=== PATIENT | male | born 1985 | race Caucasian/White ===

== ENCOUNTER 2022-05-27 22:47 | Emergency (ER) | payer OTHER, SELFPAY ==
--- NOTE | ~2022-05-27 | XR_ITS ---
EXAMINATION: XR RIBS, BILATERAL CLINICAL INFORMATION: Rib pain. Fall. COMPARISON: None TECHNIQUE: PA view the chest and PA and both oblique views of the ribs bilaterally. FINDINGS: Lungs are clear. No consolidation, pneumothorax, or pleural effusion. The cardiomediastinal silhouette and pulmonary vasculature are normal. Osseous structures are unremarkable. Ribs are intact. No fractures are identified. XR/XR ribs BI min 4V w CXR1V IMPRESSION: Normal chest and rib radiographs. No rib fractures are identified.
[2022-05-27 23:31] VITALS: BMI 27.3
--- NOTE | 2022-05-27 23:32 | MHC.CARE ---
CARE Team had a telephonic encounter with [employer] Sgt Ralph and he reported Pt called [facility] twice for SI with a plan. He stated the first time pt denied SI and reported he was fine. The second call from [facility] he transported pt to [facility]. He also reported pt was arrested last month for resisting an arrest and assaulting an officer. He stated pt was kicked out of his home by his because of his behavior. Pt was taking medication for PTSD however stopped taking medication because the did not like pts behavior while on medication. Officer stated he believes pt's behavior is due to alcohol. He provided pt's father contact infroamtion , who reports living in [place] and had nothing to say other than being concerned for pt's PTSD. CARE Team had telephonic encounter with [place] [facility] RN Catherine who states Ana Bell has left for the night but was willing to assist this tech writer with obtaining background information. She reports pt called twice earlier tonight making SI statements with no plan. She reported police arrived at the hotel where pt was located. He was found holding a hatchet and officers removed the hatchet. Pt reported trying to cut three times but was not able to follow through with act. She reports pt has a history of inpatient hospitalization at the [facility]. She reports pt diagnosis is Mixed Bipolar 1 Disorder, Alcohol Dependence, TBI, PTSD, and Severe Depression.
[2022-05-27] MEDS: Gabapentin 600 MG TABLET 1200 MG PO (23:41)
[2022-05-27] MEDS: clonazePAM 1 MG TABLET 2 MG PO (23:41)
[2022-05-27] MEDS: Lithium Carbonate ER 300 MG TABLET.ER PO (23:42)
[2022-05-27] MEDS: Lithium Carbonate ER 300 MG TABLET.ER 600 MG PO (23:42)
--- NOTE | 2022-05-27 23:47 | ED.PSYCH ---
HPI - Psych General Chief Complaint: Psychiatric Symptoms <Damaris Davenport NP - Last Filed: 05/28/22 02:04> Stated Complaint: si section 12 <Damaris Davenport NP - Last Filed: 05/28/22 02:04> Time Seen by Provider: 05/27/22 22:59 <Damaris Davenport NP - Last Filed: 05/28/22 02:04> Source: patient, EMS and police <Damaris Davenport NP - Last Filed: 05/28/22 02:04> Mode of arrival: EMS <Damaris Davenport NP - Last Filed: 05/28/22 02:04> Limitations: altered mental status ( intoxicated) <Damaris Davenport NP - Last Filed: 05/28/22 02:04> History of Present Illness HPI Narrative: 36-year-old male presents via EMS in police custody under section 12 for crisis Assistance. Patient is angry, uncooperative, and not forthcoming with information. <Damaris Davenport NP - Last Filed: 05/28/22 02:04> Onset (ago): month(s) <Damaris Davenport NP - Last Filed: 05/28/22 02:04> Duration: getting worse <Damaris Davenport NP - Last Filed: 05/28/22 02:04> History of same: Yes <Damaris Davenport NP - Last Filed: 05/28/22 02:04> Relieving factors: none <Damaris Davenport NP - Last Filed: 05/28/22 02:04> Exacerbating factors: alcohol <Damaris Davenport NP - Last Filed: 05/28/22 02:04> Context: recent alcohol abuse <Damaris Davenport NP - Last Filed: 05/28/22 02:04> Associated psychiatric symptoms: depression, suicidal ideation and homicidal ideation <Damaris Davenport NP - Last Filed: 05/28/22 02:04> Associated symptoms: denies other symptoms <Damaris Davenport NP - Last Filed: 05/28/22 02:04> Treatments prior to arrival: placed on mental health hold <Damaris Davenport NP - Last Filed: 05/28/22 02:04> If self harm: admits thoughts of self harm <Damaris Davenport NP - Last Filed: 05/28/22 02:04> Related Data Home Medications: Home Medications Medication Instructions Recorded Confirmed clonazepam 0.5 mg tablet (Klonopin) 0.5 mg PO TID 05/28/22 05/28/22 gabapentin 300 mg capsule 1,200 mg PO BEDTIME 05/28/22 05/28/22 gabapentin 300 mg capsule 300 mg PO BID@0700,1200 05/28/22 05/28/22 hydroxyzine HCl 25 mg tablet 75 mg PO BEDTIME PRN Anxiety 05/28/22 05/28/22 lithium carbonate 300 mg capsule 900 mg PO BEDTIME 05/28/22 05/28/22 melatonin 3 mg tablet 9 mg PO BEDTIME 05/28/22 05/28/22 <Damaris Davenport NP - Last Filed: 05/28/22 02:04> Allergies/Adverse Reactions: Allergies Allergy/AdvReac Type Severity Reaction Status Date / Time No Known Allergies Allergy Verified 05/27/22 23:32 <Damaris Davenport NP - Last Filed: 05/28/22 02:04> Review of Systems Review of Systems: Yes Unobtainable due to mental status ( Patient belligerent and not answering questions) <Damaris Davenport NP - Last Filed: 05/28/22 02:04> [facility] Past Medical History Attestation statement: The following information was validated with the patient. <Damaris Davenport NP - Last Filed: 05/28/22 02:04> Source: unable to obtain ( no prior visits to this facility) <Damaris Davenport NP - Last Filed: 05/28/22 02:04> Social History Social History: Social History Alcohol intake: former Smoked in Last 30 Days: Yes Use of substances other than those prescribed or required for medical reasons: Yes Substance Use Type: Marijuana Advance Directives: No <Damaris Davenport NP - Last Filed: 05/28/22 02:04> Physical Exam Vital Signs: Vital Signs: Last Vital Signs Temp 97.8 F 05/28/22 11:45 Pulse 70 05/28/22 11:45 Resp 14 05/28/22 11:45 BP 125/84 05/28/22 11:45 Pulse Ox 96 05/28/22 11:45 O2 Del Method 05/28/22 11:45 BMI result Body Mass Index 27.3 <Damaris Davenport NP - Last Filed: 05/28/22 02:04> Vital Signs: Last Vital Signs Temp 97.8 F 05/28/22 11:45 Pulse 70 05/28/22 11:45 Resp 14 05/28/22 11:45 BP 125/84 05/28/22 11:45 Pulse Ox 96 05/28/22 11:45 O2 Del Method 05/28/22 11:45 BMI result Body Mass Index 27.3 <Rigoberto Thompson MD - Last Filed: 05/28/22 14:13> Vital Signs: Last Vital Signs Temp 97.8 F 05/28/22 11:45 Pulse 70 05/28/22 11:45 Resp 14 05/28/22 11:45 BP 125/84 05/28/22 11:45 Pulse Ox 96 05/28/22 11:45 O2 Del Method 05/28/22 11:45 BMI result Body Mass Index 27.3 <Jason Hill MD - Last Filed: 05/28/22 18:59> Appearance: Alert. severe emotional distress. Eyes: Pupils equal, round and reactive to light. Neck: Normal inspection. Neck supple. CVS: Normal heart rate and rhythm. Pulses normal. Respiratory: No respiratory distress. Breath sounds normal. Skin: Skin warm and dry. Normal skin color. Normal skin turgor. Extremities: No lower extremity edema. Gait balance and coordinated. Neuro: No motor deficit. No sensory deficit. Cranial nerves 2-12 intact. <Damaris Davenport NP - Last Filed: 05/28/22 02:04> Course Course Course Narrative: 36-year-old male presents via EMS under police custody section 12 for crisis. Patient is in [place] , once police arrived at his home, they had to disarm a knife from the patient's presence. Patient had called crisis line twice, had been drinking alcohol and had not been taking his medications for over a month. Upon arrival, patient is angry, threatening to kill everyone. patient is not redirectable. Security Officers called [place] police department to help assist with telephone exchange operator and medication administration. After approximately 60 minutes of deescalation, patient was given 2 mg of Klonopin, 1200 mg of gabapentin, and 900 mg of lithium, per his home dosage. Patient stated to have chest pain on the left side after a fall that occurred yesterday. Will order chest x-ray. 23:58 patient x-ray with this MARINE PAINTER and security. Chest x-ray is negative for acute findings. Plan of care is for evaluation in the morning. Patient continues to refuse labs. <Damaris Davenport NP - Last Filed: 05/28/22 02:04> Reevaluation(s) Reevaluation #1: physician observation had a rough night needed to be medicated, now sleeping, still has not allowed labs to be drawn. awaiting evaluation <Rigoberto Thompson MD - Last Filed: 05/28/22 14:13> Time: 08:42 <Rigoberto Thompson MD - Last Filed: 05/28/22 14:13> Reevaluation #2: Patient is medically cleared for crisis <Rigoberto Thompson MD - Last Filed: 05/28/22 14:13> Time: 14:13 <Rigoberto Thompson MD - Last Filed: 05/28/22 14:13> Reevaluation #3: [facility]. He is having difficulty sleeping. Will order her a mg of Ativan and melatonin for the patient. <Jason Hill MD - Last Filed: 05/28/22 18:59> Medications Administered Generic Name Dose Route Start Last Admin Trade Name Freq PRN Reason Stop Dose Admin Clonazepam 0.5 mg 05/28/22 15:00 05/28/22 13:19 Clonazepam 0.5 Mg Tablet PO 0.5 mg TID MICH Administration Gabapentin 900 mg 05/28/22 17:45 05/28/22 17:50 Gabapentin 300 Mg Capsule PO 900 mg BID@0700,1200 MICH Administration Nicotine Polacrilex 2 mg 05/28/22 00:57 05/28/22 18:19 Nicotine Polacrilex 2 Mg Gum BUCCAL 2 mg Q2H PRN Administration smoking cessation Discontinued Medications Generic Name Dose Route Start Last Admin Trade Name Freq PRN Reason Stop Dose Admin Clonazepam 2 mg 05/27/22 23:36 05/27/22 23:41 Clonazepam 1 Mg Tablet PO 05/27/22 23:37 2 mg ONCE ONE Administration Gabapentin 1,200 mg 05/27/22 23:33 05/27/22 23:41 Gabapentin 600 Mg Tablet PO 05/27/22 23:34 1,200 mg ONCE ONE Administration [place] Carbon[place] 600 mg 05/27/22 23:37 05/27/22 23:42 [place] Carbon[place] Er 300 Mg Tablet.Er PO 05/27/22 23:38 600 mg ONCE ONE Administration [place] 300 mg 05/27/22 23:40 05/27/22 23:42 [place] Carbon[place] Er 300 Mg Tablet.Er PO 05/27/22 23:41 300 mg ONCE ONE Administration <Damaris Davenport NP - Last Filed: 05/28/22 02:04> Medications Administered Generic Name Dose Route Start Last Admin Trade Name Freq PRN Reason Stop Dose Admin Clonazepam 0.5 mg 05/28/22 15:00 05/28/22 13:19 Clonazepam 0.5 Mg Tablet PO 0.5 mg TID MICH Administration Gabapentin 900 mg 05/28/22 17:45 05/28/22 17:50 Gabapentin 300 Mg Capsule PO 900 mg BID@0700,1200 MICH Administration Nicotine Polacrilex 2 mg 05/28/22 00:57 05/28/22 18:19 Nicotine Polacrilex 2 Mg Gum BU[place]AL 2 mg Q2H PRN Administration smoking cessation Discontinued Medications Generic Name Dose Route Start Last Admin Trade Name Freq PRN Reason Stop Dose Admin Clonazepam 2 mg 05/27/22 23:36 05/27/22 23:41 Clonazepam 1 Mg Tablet PO 05/27/22 23:37 2 mg ONCE ONE Administration Gabapentin 1,200 mg 05/27/22 23:33 05/27/22 23:41 Gabapentin 600 Mg Tablet PO 05/27/22 23:34 1,200 mg ONCE ONE Administration [place] Carbon[place] 600 mg 05/27/22 23:37 05/27/22 23:42 [place] Carbon[place] Er 300 Mg Tablet.Er PO 05/27/22 23:38 600 mg ONCE ONE Administration [place] 300 mg 05/27/22 23:40 05/27/22 23:42 [place] Carbon[place] Er 300 Mg Tablet.Er PO 05/27/22 23:41 300 mg ONCE ONE Administration <Rigoberto Thompson MD - Last Filed: 05/28/22 14:13> Medications Administered Generic Name Dose Route Start Last Admin Trade Name Freq PRN Reason Stop Dose Admin Clonazepam 0.5 mg 05/28/22 15:00 05/28/22 13:19 Clonazepam 0.5 Mg Tablet PO 0.5 mg TID MICH Administration Gabapentin 900 mg 05/28/22 17:45 05/28/22 17:50 Gabapentin 300 Mg Capsule PO 900 mg BID@0700,1200 MICH Administration Nicotine Polacrilex 2 mg 05/28/22 00:57 05/28/22 18:19 Nicotine Polacrilex 2 Mg Gum [place] 2 mg Q2H PRN Administration smoking cessation Discontinued Medications Generic Name Dose Route Start Last Admin Trade Name Freq PRN Reason Stop Dose Admin Clonazepam 2 mg 05/27/22 23:36 05/27/22 23:41 Clonazepam 1 Mg Tablet PO 05/27/22 23:37 2 mg ONCE ONE Administration Gabapentin 1,200 mg 05/27/22 23:33 05/27/22 23:41 Gabapentin 600 Mg Tablet PO 05/27/22 23:34 1,200 mg ONCE ONE Administration [place] 600 mg 05/27/22 23:37 05/27/22 23:42 [place] Er 300 Mg Tablet.Er PO 05/27/22 23:38 600 mg ONCE ONE Administration [place] 300 mg 05/27/22 23:40 05/27/22 23:42 [place] Er 300 Mg Tablet.Er PO 05/27/22 23:41 300 mg ONCE ONE Administration <Jason Hill MD - Last Filed: 05/28/22 18:59> Medical Decision Making Differential Diagnosis Differential Diagnoses: The differential diagnosis associated with the presentation includes <Damaris Davenport NP - Last Filed: 05/28/22 02:04> PTSD, psychosis <Damaris Davenport NP - Last Filed: 05/28/22 02:04> Admission/Observation Consideration of admission/observation: Escalation of care including admission/observation considered <Damaris Davenport NP - Last Filed: 05/28/22 02:04> strongly consider psychiatric admission <Damaris Davenport NP - Last Filed: 05/28/22 02:04> Consult Healthcare Provider Management of the patient was discussed with: Behavioral Health Provider <Damaris Davenport NP - Last Filed: 05/28/22 02:04> Lab Data [facility] Lab Attestation statement: I reviewed the patient's lab results. <Damaris Davenport NP - Last Filed: 05/28/22 02:04> Result Diagrams: 05/28/22 09:59 05/28/22 09:59 <Damaris Davenport NP - Last Filed: 05/28/22 02:04> Labs: Lab Results 05/28/22 05/28/22 05/28/22 Range/Units 00:55 00:55 09:59 WBC 5.8 (4.8-10.8) X10*3/uL RBC 5.43 (4.60-5.80) X10*6/uL Hgb 16.3 (14.0-18.0) g/dl Hct 48.1 (42.0-52.0) % MCV 88.6 (80.0-98.0) fL MCH 30.0 (27.0-33.0) pg MCHC 33.9 (31.0-36.0) g/dl RDW 13.5 (11.0-16.0) % Plt Count 265 (160-400) X10*3/uL MPV 9.3 L (9.4-12.4) fL Immature Gran % (Auto) 0.2 (0.0-0.4) % Neut % (Auto) 67.4 (45-73) % Lymph % (Auto) 23.7 (20-40) % [place] % (Auto) 5.3 (2-11) % Eos % (Auto) 2.9 (0-4) % Baso % (Auto) 0.5 (0-2) % Lymph # (Auto) 1.4 (1.2-4.9) X10*3/uL [place] # (Auto) 0.3 (0.1-1.2) X10*3/uL Eos # (Auto) 0.2 (0.0-0.4) X10*3/uL Baso # (Auto) 0.0 (0.0-0.2) X10*3/uL Abs Immat Gran (auto) 0.01 (0.00-0.03) X10*3/uL Absolute Neuts (auto) 3.9 (2.0-8.3) x10*3/uL Absolute Nucleated RBC 0.000 (0.0-0.012) X10*3/uL Nucleated RBC % (auto) 0.0 (0.0-0.2) /100WBC Sodium (135-145) mmol/L Potassium (3.3-5.1) mmol/L Chloride (96-108) mmol/L Carbon Dioxide (22-29) mmol/L Anion Gap (12-20) BUN (9-16) mg/dL Creatinine (0.5-1.4) mg/dL Estim Creat Clear Calc Estimated GFR Random Glucose (60-115) mg/dL Calcium (8.4-10.2) mg/dL Urine Color Yellow Urine Appearance Clear Urine pH 5.5 (5.0-9.0) Ur Specific [place] 1.015 (1.005-1.025) Urine Protein Negative (Neg-Trace) mg/dL Urine Glucose (UA) Negative (Negative) mg/dL Urine Ketones Trace (Negative) mg/dL Urine Blood Negative (Negative) Urine Nitrite Negative (Negative) Ur Leukocyte Esterase Negative (Negative) Urine Opiates Screen Not Detected (Not Detect) Urine Fentanyl Screen Not Detected (Not Detect) Ur Barbiturates Screen Not Detected (Not Detect) Ur Phencyclidine Scrn Not Detected (Not Detect) Ur Amphetamines Screen Not Detected (Not Detect) U Benzodiazepines Scrn POSITIVE H (Not Detect) Urine Cocaine Screen Not Detected (Not Detect) U Marijuana (THC) Screen POSITIVE H (Not Detect) Ethyl Alcohol mg/dL Influenza Type A (PCR) (Negative) Influenza Type B (PCR) (Negative) RSV RNA Qual (PCR) (Negative) SARS-CoV-2 RNA (RT-PCR) (Negative) 05/28/22 05/28/22 Range/Units 09:59 09:59 WBC (4.8-10.8) X10*3/uL RBC (4.60-5.80) X10*6/uL Hgb (14.0-18.0) g/dl Hct (42.0-52.0) % MCV (80.0-98.0) fL MCH (27.0-33.0) pg MCHC (31.0-36.0) g/dl RDW (11.0-16.0) % Plt Count (160-400) X10*3/uL MPV (9.4-12.4) fL Immature Gran % (Auto) (0.0-0.4) % Neut % (Auto) (45-73) % Lymph % (Auto) (20-40) % [place] % (Auto) (2-11) % Eos % (Auto) (0-4) % Baso % (Auto) (0-2) % Lymph # (Auto) (1.2-4.9) X10*3/uL [place] # (Auto) (0.1-1.2) X10*3/uL Eos # (Auto) (0.0-0.4) X10*3/uL Baso # (Auto) (0.0-0.2) X10*3/uL Abs Immat Gran (auto) (0.00-0.03) X10*3/uL Absolute Neuts (auto) (2.0-8.3) x10*3/uL Absolute Nucleated RBC (0.0-0.012) X10*3/uL Nucleated RBC % (auto) (0.0-0.2) /100WBC Sodium 144 (135-145) mmol/L Potassium 4.2 (3.3-5.1) mmol/L Chloride 112 H (96-108) mmol/L Carbon Dioxide 24 (22-29) mmol/L Anion Gap 12 (12-20) BUN 16 (9-16) mg/dL Creatinine 0.79 (0.5-1.4) mg/dL Estim Creat Clear Calc 161.7 Estimated GFR > 60 Random Glucose 88 (60-115) mg/dL Calcium 9.3 (8.4-10.2) mg/dL Urine Color Urine Appearance Urine pH (5.0-9.0) Ur Specific [place] (1.005-1.025) Urine Protein (Neg-Trace) mg/dL Urine Glucose (UA) (Negative) mg/dL Urine Ketones (Negative) mg/dL Urine Blood (Negative) Urine Nitrite (Negative) Ur Leukocyte Esterase (Negative) Urine Opiates Screen (Not Detect) Urine Fentanyl Screen (Not Detect) Ur Barbiturates Screen (Not Detect) Ur Phencyclidine Scrn (Not Detect) Ur Amphetamines Screen (Not Detect) U Benzodiazepines Scrn (Not Detect) Urine Cocaine Screen (Not Detect) U Marijuana (THC) Screen (Not Detect) Ethyl Alcohol 12 mg/dL Influenza Type A (PCR) NEGATIVE (Negative) Influenza Type B (PCR) NEGATIVE (Negative) RSV RNA Qual (PCR) NEGATIVE (Negative) SARS-CoV-2 RNA (RT-PCR) NEGATIVE (Negative) <Damaris Davenport NP - Last Filed: 05/28/22 02:04> Lab Results 05/28/22 05/28/22 05/28/22 Range/Units 00:55 00:55 09:59 WBC 5.8 (4.8-10.8) X10*3/uL RBC 5.43 (4.60-5.80) X10*6/uL Hgb 16.3 (14.0-18.0) g/dl Hct 48.1 (42.0-52.0) % MCV 88.6 (80.0-98.0) fL MCH 30.0 (27.0-33.0) pg MCHC 33.9 (31.0-36.0) g/dl RDW 13.5 (11.0-16.0) % Plt Count 265 (160-400) X10*3/uL MPV 9.3 L (9.4-12.4) fL Immature Gran % (Auto) 0.2 (0.0-0.4) % Neut % (Auto) 67.4 (45-73) % Lymph % (Auto) 23.7 (20-40) % [place] % (Auto) 5.3 (2-11) % Eos % (Auto) 2.9 (0-4) % Baso % (Auto) 0.5 (0-2) % Lymph # (Auto) 1.4 (1.2-4.9) X10*3/uL [place] # (Auto) 0.3 (0.1-1.2) X10*3/uL Eos # (Auto) 0.2 (0.0-0.4) X10*3/uL Baso # (Auto) 0.0 (0.0-0.2) X10*3/uL Abs Immat Gran (auto) 0.01 (0.00-0.03) X10*3/uL Absolute Neuts (auto) 3.9 (2.0-8.3) x10*3/uL Absolute Nucleated RBC 0.000 (0.0-0.012) X10*3/uL Nucleated RBC % (auto) 0.0 (0.0-0.2) /100WBC Sodium (135-145) mmol/L Potassium (3.3-5.1) mmol/L Chloride (96-108) mmol/L Carbon Dioxide (22-29) mmol/L Anion Gap (12-20) BUN (9-16) mg/dL Creatinine (0.5-1.4) mg/dL Estim Creat Clear Calc Estimated GFR Random Glucose (60-115) mg/dL Calcium (8.4-10.2) mg/dL Urine Color Yellow Urine Appearance Clear Urine pH 5.5 (5.0-9.0) Ur Specific [place] 1.015 (1.005-1.025) Urine Protein Negative (Neg-Trace) mg/dL Urine Glucose (UA) Negative (Negative) mg/dL Urine Ketones Trace (Negative) mg/dL Urine Blood Negative (Negative) Urine Nitrite Negative (Negative) Ur Leukocyte Esterase Negative (Negative) Urine Opiates Screen Not Detected (Not Detect) Urine Fentanyl Screen Not Detected (Not Detect) Ur Barbiturates Screen Not Detected (Not Detect) Ur Phencyclidine Scrn Not Detected (Not Detect) Ur Amphetamines Screen Not Detected (Not Detect) U Benzodiazepines Scrn POSITIVE H (Not Detect) Urine Cocaine Screen Not Detected (Not Detect) U Marijuana (THC) Screen POSITIVE H (Not Detect) Ethyl Alcohol mg/dL Influenza Type A (PCR) (Negative) Influenza Type B (PCR) (Negative) RSV RNA Qual (PCR) (Negative) SARS-CoV-2 RNA (RT-PCR) (Negative) 05/28/22 05/28/22 Range/Units 09:59 09:59 WBC (4.8-10.8) X10*3/uL RBC (4.60-5.80) X10*6/uL Hgb (14.0-18.0) g/dl Hct (42.0-52.0) % MCV (80.0-98.0) fL MCH (27.0-33.0) pg MCHC (31.0-36.0) g/dl RDW (11.0-16.0) % Plt Count (160-400) X10*3/uL MPV (9.4-12.4) fL Immature Gran % (Auto) (0.0-0.4) % Neut % (Auto) (45-73) % Lymph % (Auto) (20-40) % [place] % (Auto) (2-11) % Eos % (Auto) (0-4) % Baso % (Auto) (0-2) % Lymph # (Auto) (1.2-4.9) X10*3/uL [place] # (Auto) (0.1-1.2) X10*3/uL Eos # (Auto) (0.0-0.4) X10*3/uL Baso # (Auto) (0.0-0.2) X10*3/uL Abs Immat Gran (auto) (0.00-0.03) X10*3/uL Absolute Neuts (auto) (2.0-8.3) x10*3/uL Absolute Nucleated RBC (0.0-0.012) X10*3/uL Nucleated RBC % (auto) (0.0-0.2) /100WBC Sodium 144 (135-145) mmol/L Potassium 4.2 (3.3-5.1) mmol/L Chloride 112 H (96-108) mmol/L Carbon Dioxide 24 (22-29) mmol/L Anion Gap 12 (12-20) BUN 16 (9-16) mg/dL Creatinine 0.79 (0.5-1.4) mg/dL Estim Creat Clear Calc 161.7 Estimated GFR > 60 Random Glucose 88 (60-115) mg/dL Calcium 9.3 (8.4-10.2) mg/dL Urine Color Urine Appearance Urine pH (5.0-9.0) Ur Specific [place] (1.005-1.025) Urine Protein (Neg-Trace) mg/dL Urine Glucose (UA) (Negative) mg/dL Urine Ketones (Negative) mg/dL Urine Blood (Negative) Urine Nitrite (Negative) Ur Leukocyte Esterase (Negative) Urine Opiates Screen (Not Detect) Urine Fentanyl Screen (Not Detect) Ur Barbiturates Screen (Not Detect) Ur Phencyclidine Scrn (Not Detect) Ur Amphetamines Screen (Not Detect) U Benzodiazepines Scrn (Not Detect) Urine Cocaine Screen (Not Detect) U Marijuana (THC) Screen (Not Detect) Ethyl Alcohol 12 mg/dL Influenza Type A (PCR) NEGATIVE (Negative) Influenza Type B (PCR) NEGATIVE (Negative) RSV RNA Qual (PCR) NEGATIVE (Negative) SARS-CoV-2 RNA (RT-PCR) NEGATIVE (Negative) <Rigoberto Thompson MD - Last Filed: 05/28/22 14:13> Lab Results 05/28/22 05/28/22 05/28/22 Range/Units 00:55 00:55 09:59 WBC 5.8 (4.8-10.8) X10*3/uL RBC 5.43 (4.60-5.80) X10*6/uL Hgb 16.3 (14.0-18.0) g/dl Hct 48.1 (42.0-52.0) % MCV 88.6 (80.0-98.0) fL MCH 30.0 (27.0-33.0) pg MCHC 33.9 (31.0-36.0) g/dl RDW 13.5 (11.0-16.0) % Plt Count 265 (160-400) X10*3/uL MPV 9.3 L (9.4-12.4) fL Immature Gran % (Auto) 0.2 (0.0-0.4) % Neut % (Auto) 67.4 (45-73) % Lymph % (Auto) 23.7 (20-40) % [place] % (Auto) 5.3 (2-11) % Eos % (Auto) 2.9 (0-4) % Baso % (Auto) 0.5 (0-2) % Lymph # (Auto) 1.4 (1.2-4.9) X10*3/uL [place] # (Auto) 0.3 (0.1-1.2) X10*3/uL Eos # (Auto) 0.2 (0.0-0.4) X10*3/uL Baso # (Auto) 0.0 (0.0-0.2) X10*3/uL Abs Immat Gran (auto) 0.01 (0.00-0.03) X10*3/uL Absolute Neuts (auto) 3.9 (2.0-8.3) x10*3/uL Absolute Nucleated RBC 0.000 (0.0-0.012) X10*3/uL Nucleated RBC % (auto) 0.0 (0.0-0.2) /100WBC Sodium (135-145) mmol/L Potassium (3.3-5.1) mmol/L Chloride (96-108) mmol/L Carbon Dioxide (22-29) mmol/L Anion Gap (12-20) BUN (9-16) mg/dL Creatinine (0.5-1.4) mg/dL Estim Creat Clear Calc Estimated GFR Random Glucose (60-115) mg/dL Calcium (8.4-10.2) mg/dL Urine Color Yellow Urine Appearance Clear Urine pH 5.5 (5.0-9.0) Ur Specific [place] 1.015 (1.005-1.025) Urine Protein Negative (Neg-Trace) mg/dL Urine Glucose (UA) Negative (Negative) mg/dL Urine Ketones Trace (Negative) mg/dL Urine Blood Negative (Negative) Urine Nitrite Negative (Negative) Ur Leukocyte Esterase Negative (Negative) Urine Opiates Screen Not Detected (Not Detect) Urine Fentanyl Screen Not Detected (Not Detect) Ur Barbiturates Screen Not Detected (Not Detect) Ur Phencyclidine Scrn Not Detected (Not Detect) Ur Amphetamines Screen Not Detected (Not Detect) U Benzodiazepines Scrn POSITIVE H (Not Detect) Urine Cocaine Screen Not Detected (Not Detect) U Marijuana (THC) Screen POSITIVE H (Not Detect) Ethyl Alcohol mg/dL Influenza Type A (PCR) (Negative) Influenza Type B (PCR) (Negative) RSV RNA Qual (PCR) (Negative) SARS-CoV-2 RNA (RT-PCR) (Negative) 05/28/22 05/28/22 Range/Units 09:59 09:59 WBC (4.8-10.8) X10*3/uL RBC (4.60-5.80) X10*6/uL Hgb (14.0-18.0) g/dl Hct (42.0-52.0) % MCV (80.0-98.0) fL MCH (27.0-33.0) pg MCHC (31.0-36.0) g/dl RDW (11.0-16.0) % Plt Count (160-400) X10*3/uL MPV (9.4-12.4) fL Immature Gran % (Auto) (0.0-0.4) % Neut % (Auto) (45-73) % Lymph % (Auto) (20-40) % [place] % (Auto) (2-11) % Eos % (Auto) (0-4) % Baso % (Auto) (0-2) % Lymph # (Auto) (1.2-4.9) X10*3/uL [place] # (Auto) (0.1-1.2) X10*3/uL Eos # (Auto) (0.0-0.4) X10*3/uL Baso # (Auto) (0.0-0.2) X10*3/uL Abs Immat Gran (auto) (0.00-0.03) X10*3/uL Absolute Neuts (auto) (2.0-8.3) x10*3/uL Absolute Nucleated RBC (0.0-0.012) X10*3/uL Nucleated RBC % (auto) (0.0-0.2) /100WBC Sodium 144 (135-145) mmol/L Potassium 4.2 (3.3-5.1) mmol/L Chloride 112 H (96-108) mmol/L Carbon Dioxide 24 (22-29) mmol/L Anion Gap 12 (12-20) BUN 16 (9-16) mg/dL Creatinine 0.79 (0.5-1.4) mg/dL Estim Creat Clear Calc 161.7 Estimated GFR > 60 Random Glucose 88 (60-115) mg/dL Calcium 9.3 (8.4-10.2) mg/dL Urine Color Urine Appearance Urine pH (5.0-9.0) Ur Specific [place] (1.005-1.025) Urine Protein (Neg-Trace) mg/dL Urine Glucose (UA) (Negative) mg/dL Urine Ketones (Negative) mg/dL Urine Blood (Negative) Urine Nitrite (Negative) Ur Leukocyte Esterase (Negative) Urine Opiates Screen (Not Detect) Urine Fentanyl Screen (Not Detect) Ur Barbiturates Screen (Not Detect) Ur Phencyclidine Scrn (Not Detect) Ur Amphetamines Screen (Not Detect) U Benzodiazepines Scrn (Not Detect) Urine Cocaine Screen (Not Detect) U Marijuana (THC) Screen (Not Detect) Ethyl Alcohol 12 mg/dL Influenza Type A (PCR) NEGATIVE (Negative) Influenza Type B (PCR) NEGATIVE (Negative) RSV RNA Qual (PCR) NEGATIVE (Negative) SARS-CoV-2 RNA (RT-PCR) NEGATIVE (Negative) <Jason Hill MD - Last Filed: 05/28/22 18:59> Independent Interpretation I performed an independent interpretation of an: Plain X-Ray <Damaris Davenport NP - Last Filed: 05/28/22 02:04> Radiology Impression Discussion of test interpretation with radiology: I have reviewed the radiologist's reading. <Damaris Davenport NP - Last Filed: 05/28/22 02:04> Radiologist Impression: EXAMINATION: XR RIBS, BILATERAL CLINICAL INFORMATION: Rib pain. Fall. COMPARISON: None TECHNIQUE: PA view the chest and PA and both oblique views of the ribs bilaterally. FINDINGS: Lungs are clear. No consolidation, pneumothorax, or pleural effusion. The cardiomediastinal silhouette and pulmonary vasculature are normal. Osseous structures are unremarkable. Ribs are intact. No fractures are identified. XR/XR ribs BI min 4V w CXR1V IMPRESSION: Normal chest and rib radiographs. No rib fractures are identified. <KEVIN Cyr Last Filed: 05/28/22 02:04> Social Determinants Patient?s care significantly limited by Social Determinants of Health including: Other Social Determinant of Health <Damaris Davenport NP - Last Filed: 05/28/22 02:04> Critical Care Time Critical Care Time Critical Care Time: Yes <Damaris Davenport NP - Last Filed: 05/28/22 02:04> Total Critical Care Time: 45 <Damaris Davenport NP - Last Filed: 05/28/22 02:04> Attestation: I have personally provided critical care time exclusive of time spent on separately billable procedures. Time includes review of laboratory data, radiology results, discussion with consultants, and monitoring for potential decompensation. Interventions were performed as documented. <KEVIN Cyr Last Filed: 05/28/22 02:04> Discharge Plan Discharge Clinical Impression: Acute psychosis, Acute post-traumatic stress disorder <KEVIN Cyr Last Filed: 05/28/22 02:04> Patient Disposition: Still a Patient <Damaris Davenport NP - Last Filed: 05/28/22 02:04> Prescriptions: No Action clonazepam [Klonopin] 0.5 mg Tablet 0.5 mg PO TID melatonin 3 mg Tablet 9 mg PO BEDTIME gabapentin 300 mg Capsule 300 mg PO BID@0700,1200 gabapentin 300 mg Capsule 1,200 mg PO BEDTIME hydroxyzine HCl 25 mg Tablet 75 mg PO BEDTIME PRN (Reason: Anxiety) lithium carbonate 300 mg Capsule 900 mg PO BEDTIME <Damaris Davenport NP - Last Filed: 05/28/22 02:04> Interventions: [place]-Suicide Risk Severity Scale Last Done: 05/28/22 07:32 <Damaris Davenport NP - Last Filed: 05/28/22 02:04>
[2022-05-28 01:02] LABS: Appearance Urine Clear; Color Urine Yellow; Glucose Urine UA Negative (Negative); Leukocyte Esterase Urine Negative (Negative); Nitrite Urine Negative (Negative); PH 5.5 (5.0-9.0); Specific Gravity - Urine 1.015 (1.005-1.025); Urine Blood Negative (Negative); Urine Ketones Trace mg/dL (Negative); Urine Protein Negative (Neg-Trace)
[2022-05-28] MEDS: Nicotine Polacrilex 2 MG GUM BUCCAL ×4 (01:07→18:19)
[2022-05-28 01:20] LABS: Amphetamine Screen Urine Not Detected (Not Detect); Barbiturates, Urine Not Detected (Not Detect); Benzodiazepines Screen Urine POSITIVE (Not Detect); Cannabinoid Screen Urine POSITIVE (Not Detect); Cocaine Screen Urine Not Detected (Not Detect); Fentanyl, urine Not Detected (Not Detect); Opiate Screen Urine Not Detected (Not Detect); Phencyclidine Screen Urine Not Detected (Not Detect)
--- NOTE | 2022-05-28 02:20 | PC.NURSE ---
Pt. arrived via EMS and was uncooperative with changeover. Security was present. Galo PELAEZ was called to assist. Pt. eventually calmed enough to move to room and changeover was completed. Pt. placed on 15 minute safety checks. Pt. medicated per MAR with reported home medications. Pt. rested quietly in bed for a time. Pt. asked to speak to a doctor or psychologist or psychiatrist. This RN spoke with pt. about issues in his life dealing with his home and . Pt. encouraged to focus on himself and take his medications so he could feel more in control and then to deal with larger issues. Pt. again rested quietly for a short time. Pt. asking about leaving and questioned whether we could hold him here. This RN explained to pt. that he was brought here on a section 12 and we were unable to let him leave. Informed pt. of next steps of meeting with care team and psychiatry, both of which consults were ordered. Pt. reported feeling restless. Pt. was offered medications to help with the anxiety and restlessness. Pt. eventually asked for nicotine gum, which was then provided to pt. Pt. is now sleeping, respirations even and unlabored, no distress noted. Will continue to monitor.
[2022-05-28 05:09] VITALS: RESP 18
--- NOTE | 2022-05-28 06:17 | PC.NURSE ---
Pt. slept since around 0200 and is still sleeping. No distress noted. Will continue to monitor.
--- NOTE | 2022-05-28 09:24 | ECG_ITS ---
Test Reason : clearance Blood Pressure : / mmHG Vent. Rate : 071 BPM Atrial Rate : 071 BPM P-R Int : 196 ms QRS Dur : 086 ms QT Int : 356 ms P-R-T Axes : 081 -56 055 degrees QTc Int : 386 ms Normal sinus rhythm Left axis deviation Abnormal ECG No previous ECGs available Referred By: Rigoberto Thompson Electronically Signed By:JOSUE FIGUEROA MD
[2022-05-28 10:04] LABS: MANUAL DIFF FLAG NO
[2022-05-28 10:06] LABS: Basophils Percent Auto 0.5 % (0-2); Eosinophils Absolute Auto 0.2 X10*3/uL (0.0-0.4); Eosinophils Percent Auto 2.9 % (0-4); Hematocrit 48.1 % (42.0-52.0); Hemoglobin 16.3 g/dl (14.0-18.0); Imm Gran Abs Auto 0.01 X10*3/uL (0.00-0.03); Imm Gran Pct Auto 0.2 % (0.0-0.4); Lymphocytes Absolute Auto 1.4 X10*3/uL (1.2-4.9); Lymphocytes Percent Auto 23.7 % (20-40); Mean Corpuscular HGB Conc 33.9 g/dl (31.0-36.0); Mean Corpuscular Volume 88.6 fL (80.0-98.0); Mean Platelet Volume 9.3 fL (9.4-12.4); Monocytes Absolute Auto 0.3 X10*3/uL (0.1-1.2); Monocytes Percent Auto 5.3 % (2-11); Neutrophils Absolute Auto 3.9 x10*3/uL (2.0-8.3); Neutrophils Percent Auto 67.4 % (45-73); Platelet Count 265 X10*3/uL (160-400); Red Blood Count 5.43 X10*6/uL (4.60-5.80); Red Cell Distribution Width 13.5 % (11.0-16.0); White Blood Count 5.8 X10*3/uL (4.8-10.8)
--- NOTE | 2022-05-28 10:13 | PC.NURSE ---
Lab called to see if they could add on ethanol level to the tubes that were already sent up to which they agreed.
[2022-05-28 10:26] LABS: Anion Gap 12 (12-20); Blood Urea Nitrogen 16 mg/dL (9-16); Calcium 9.3 mg/dL (8.4-10.2); Carbon Dioxide 24 mmol/L (22-29); Chloride 112 mmol/L (96-108); Creatinine Clr Calc Pharmacy 161.7; Estimated Glomerular Filt Rate > 60; Glucose Random 88 mg/dL (60-115); Potassium 4.2 mmol/L (3.3-5.1); Sodium 144 mmol/L (135-145)
[2022-05-28 11:04] LABS: Influenza A PCR NEGATIVE (Negative); Influenza B PCR NEGATIVE (Negative); Resp Syncy Virus RNA Qual PCR NEGATIVE (Negative); SARS COV2 PCR INHOUSE NEGATIVE (Negative)
[2022-05-28 11:25] LABS: Ethanol 12 mg/dL
[2022-05-28 11:45] VITALS: BP 125/84; PULSE 70; RESP 14; TEMP 36.6; O2SAT 96
[2022-05-28] MEDS: clonazePAM 0.5 MG TABLET PO ×2 (13:19→20:09)
--- NOTE | 2022-05-28 13:20 | PC.NURSE ---
Medication given early as pt did not receive morning dose, pt request and care team request.
--- NOTE | 2022-05-28 14:28 | MHC.CARE ---
Pt was referred to the [facility], all information was faxed [phone] at [phone]
--- NOTE | 2022-05-28 16:37 | MHC.CARE ---
1600 Call from [place] Hide Buffer, Yojana Otero, looking for update on patient. They have the assessment and second shift MD will review, they will call back.
[2022-05-28] MEDS: Gabapentin 300 MG CAPSULE 900 MG PO (17:50)
--- NOTE | 2022-05-28 19:48 | MHC.CARE ---
Pt has been accepted to the OR. An ambulance will be sent from the OR to pick him up at 0830. Pt has been made aware and is agreeable with this plan. CARE Team will coordinate S12a for transport. Nurse to nurse will need to be completed in the morning prior to 8AM; call [phone] ex [phone]. Admitting provider is Dr. Xavier.
[2022-05-28] MEDS: Lithium Carbonate 300 MG CAPSULE 900 MG PO (20:09)
[2022-05-28] MEDS: Melatonin 3 MG TABLET 9 MG PO (20:09)
[2022-05-28] MEDS: Gabapentin 300 MG CAPSULE 1200 MG PO (20:10)
[2022-05-29 06:12] VITALS: BP 135/61; PULSE 65; RESP 16; TEMP 36.9; O2SAT 99
--- NOTE | 2022-05-29 06:41 | PC.NURSE ---
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
[2022-05-29] MEDS: Gabapentin 300 MG CAPSULE 900 MG PO (07:20)
--- NOTE | 2022-05-29 07:24 | PC.NURSE ---
sleeping and easily woken, polite and pleasant, medicated w gabapentin, aware of transport at 0800, nad
--- NOTE | 2022-05-29 08:37 | PC.NURSE ---
sect 12 given to ems w report, pt calm and cooperative , report given to [facility] RN again
== END 2022-05-29 08:39 | disposition still patient (30) ==
PROVIDERS: Emergency Medicine; Nurse Practitioner Family; Emergency Provider Internal Medicine
DX: F23 Brief psychotic disorder (principal); F43.11 Post-traumatic stress disorder, acute; Z72.89 Other problems related to lifestyle; Z63.5 Disruption of family by separation and divorce; Z65.5 Exposure to disaster, war and other hostilities; R45.851 Suicidal ideations; R45.850 Homicidal ideations; R45.1 Restlessness and agitation; F41.9 Anxiety disorder, unspecified; F31.89 Other bipolar disorder; F10.20 Alcohol dependence, uncomplicated; Y90.0 Blood alcohol level of less than 20 mg/100 ml; F12.90 Cannabis use, unspecified, uncomplicated; Z20.822 Contact with and (suspected) exposure to COVID-19; Z20.828 Contact with and (suspected) exposure to other viral communicable diseases; Z79.899 Other long term (current) drug therapy; Z87.820 Personal history of traumatic brain injury
CPT/HCPCS: 0241U; 71111; 80048; 80307; 81003; 82077; 85025; 93005; 99285; S9485